=== PATIENT | male | born 1985 | race Two or more races ===

== ENCOUNTER 2019-12-12 00:52 | Emergency (ER) | payer SELFPAY ==
[~2019-12-12] VITALS: Ht 165.1 cm; Wt 68.0 kg
[2019-12-12] MEDS ORDERED: LIDOcaine 1% W/epiNEPHrine 1:200,000 10ml vial IJ ONE (01:50)
[2019-12-12] MEDS ORDERED: LIDOcaine/epinephrine/tetracaine TOPICAL sol 3 ML syringe TOP ONE (01:50)
[2019-12-12] MEDS ORDERED: TETanus/Pertussis (Acell)/Diphther VAC/PF (Tdap-Adult) 0.5ml syringe IMVAC ONE (01:50)
[2019-12-12] MEDS ORDERED: amox tr/potassium clavulanate 875/125mg TAB PO ONE (01:50)
[2019-12-12] MEDS ORDERED: AMOX-580 PO (03:10)
[2019-12-12 03:28] VITALS: BP 111/74
== END 2019-12-12 03:43 | disposition home or self-care (01) ==
LOC: EDBD 00:53 → ER 00:53
DX: S71.111A Laceration without foreign body, right thigh, initial encounter (principal); F15.90 Other stimulant use, unspecified, uncomplicated; Z79.2 Long term (current) use of antibiotics; W54.0XXA Bitten by dog, initial encounter; Y93.89 Activity, other specified; Y92.89 Other specified places as the place of occurrence of the external cause; Y99.8 Other external cause status
CPT/HCPCS: 12002; 73552; 90471; 90715; 99283

== ENCOUNTER 2019-12-14 10:02 | Emergency (ER) | payer SELFPAY ==
[~2019-12-14 10:02] MED LIST: AMOX-580 PO
--- NOTE | 2019-12-14 10:55 | NUR ---
PT CALLED X 3 TO TRIAGE. PT NIL, UVALDOG RN NOTIFIED, PROVIDER NOTIFIED, NO FURTHER ACTION ORDERED
== END 2019-12-14 11:00 | disposition left against medical advice (07) ==
LOC: ER 10:03
DX: Z00.00 Encounter for general adult medical examination without abnormal findings (principal); Z53.21 Procedure and treatment not carried out due to patient leaving prior to being seen by health care provider